=== PATIENT | male | born 1955 | race Caucasian/White ===

== ENCOUNTER 2024-11-24 23:18 | Emergency (ER) | payer OTHER ==
[~2024-11-24] VITALS: Ht 177.8 cm; Wt 75.0 kg
[2024-11-24 23:26] VITALS: TEMP 97.8
[2024-11-24 23:51] LABS: Nucleated Red Blood Cells % 0.0 %
[2024-11-24 23:53] LABS: Hematocrit 37.7 % (41.0-53.0); Hemoglobin 12.3 g/dL (13.5-17.5); Mean Corpuscular Hemoglobin 23.0 pg (28.0-32.0); Mean Corpuscular Volume 70.7 fL (80.0-100.0)
--- NOTE | 2024-11-25 00:01 | ED.PDOC ---
HPI Comments 69-year-old male who came ER via EMS for chest pains. Patient has history of hypertension, mi and kidney disease. Has been having chest pain since yesterday, intermittent, was seen by paramedics yesterday, and urgent Care today showing negative results. However, patient had an episode of chest pains, with diaphoresis and weakness prompted the call paramedics again. Upon arrival of the ER patient has no more chest pains. Patient has not taking any medications for chest pains so far. Chief Complaint: Chest Pain Time Seen by MD: 00:01 Reviewed Notes: Clearance Cutter Notes Allergies: Coded Allergies: Lisinopril (Verified Allergy, Unknown, 11/24/24) Information Source: Emergency Med Personnel Mode of Arrival: EMS Severity: Moderate Timing: Hours Duration: Intermittent Location: Substernal Radiation: No Radiation Quality: Sharp Onset: With Light Exertion Cardiac Risk Factors: HTN History of: Similar pain in past, MT Modifying Factors: Nothing Associated Signs and Symptoms: Diaphoresis Past Medical History PAST MEDICAL HISTORY: CKF, HTN, MT Surgical History: Denies all surgeries Family History Family History: Reviewed,noncontributory to illness Social History Smoker: Non-Smoker Alcohol: Denies ETOH Use Drugs: Denies Drug Use Lives In: Home Constitutional: reports: weakness; denies: chills, diaphoresis, fatigue, fever, malaise, sweats, others EENTM: denies: blurred vision, double vision, ear bleeding, ear discharge, ear drainage, ear pain, ear ringing, eye pain, eye redness, hearing loss, mouth pa in, mouth swelling, nasal discharge, nose bleeding, nose congestion, nose pain, photophobia, tearing, throat pain, throat swelling, voice changes, others Respiratory: denies: cough, hemoptysis, orthopnea, SOB at rest, shortness of breath, SOB with excertion, stridor, wheezing, others Cardiovascular: reports: chest pain; denies: dizzy spells, diaphoresis, Dyspnea on exertion, edema, irregular heart beat, left arm pain, lightheadedness, palpitations, PND, syncope, others Gastrointestinal: denies: abdomen distended, abdominal pain, blood streaked bow els, constipated, diarrhea, dysphagia, difficulty swallowing, hematemesis, melena, nausea, poor appetite, poor fluid intake, rectal bleeding, rectal pain, vomiting, others Genitourinary: denies: burning, dysuria, flank pain, frequency, hematuria, incontinence, penile discharge, penile sore, pain, testicle pain, testicle swelling, urgency, others Neurological: denies: dizziness, fainting, headache, left sided numbness, left sided weakness, numbness, paresthesia, pre-existing deficit, right sided numbness, right sided weakness, seizure, speech problems, tingling, tremors, weakness, others Musculoskeletal: denies: back pain, gout, joint pain, joint swelling, muscle pain, muscle stiffness, neck pain, others Integumetry: denies: bruises, change in color, change in hair/nails, dryness, laceration, lesions, lumps, rash, wounds, others Allergic/Immunocompromised: denies: Difficulty Healing, Frequent Infections, Hives, Itching, others Hematologic/Lymphatic: denies: anemia, blood clots, easy bleeding, easy bruising, swollen glands, others Endocrine: denies: excessive hunger, excessive sweating, excessive thirst, excessive urination, flushing, intolerance to cold, intolerance to heat, unexplained weight gain, unexplained weight loss, others Psychiatric: denies: anxiety, bipolar disorder, depression, hopeless, panic disorder, schizophrenia, sleepless, suicidal, others Physical Exam General Appearance: No Apparent Distress, Normal HEENT: Normal ENT Inspection, Pharynx Normal, TMs Normal Neck: Full Range of Motion, Non-Tender, Normal, Normal Inspection Respiratory: Chest Non-Tender, Lungs Clear, No Accessory Muscle Use, No Respira tory Distress, Normal Breath Sounds Cardiovascular: No Edema, No JVD, No Murmur, No Gallop, Normal Peripheral Pulses, Regular Rate/Rhythm Breast Exam: Deferred Gastrointestinal: No Organomegaly, Non Tender, No Pulsatile Mass, Normal Bowel Sounds, Soft Genitalia: Deferred Pelvic: Deferred Rectal: Deferred Extremities: No calf tenderness, Normal capillary refill, Normal inspection, Normal range of motion, Non-tender, No pedal edema Musculoskeletal : Apperance: Normal Neurologic: Alert, 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 Was a procedure done?: No CP Differential Dx Differential Diagnosis: A-fib, A-Flutter, Angina, Heart Failure, MT, Pulmonary Embolus, V-Fib, V-Tach, Other X-Ray, Labs, Meds, VS Vital Signs Date Time Temp Pulse Resp B/P (MAP) Pulse Ox O2 Delivery O2 Flow Rate FiO2 11/25/24 03:35 62 16 129/78 (95) 97 11/24/24 23:26 97.8 55 18 129/75 96 97.8 11/24/24 23:22 59 Lab Test 11/25/24 00:44 11/24/24 23:40 Range/Units Troponin I High Sensitivity 4 3 L </=54 ng/L White Blood Count 9.3 4.4-10.8 10^3/uL Red Blood Count 5.33 4.5-5.90 10^6/uL Hemoglobin 12.3 L 13.5-17.5 g/dL Hematocrit 37.7 L 41.0-53.0 % Mean Corpuscular Volume 70.7 L 80.0-100.0 fL Mean Corpuscular Hemoglobin 23.0 L 28.0-32.0 pg Mean Corpuscular Hemoglobin Concent 32.5 32.0-36.0 g/dL Red Cell Distribution Width 18.0 H 11.8-14.3 % Platelet Count 204 140-450 10^3/uL Mean Platelet Volume 8.9 6.9-10.8 fL Neutrophils (%) (Auto) 70.3 37.0-80.0 % Lymphocytes (%) (Auto) 18.3 10.0-50.0 % Monocytes (%) (Auto) 7.1 0.0-12.0 % Eosinophils (%) (Auto) 3.8 0.0-7.0 % Basophils (%) (Auto) 0.5 0.0-2.0 % Neutrophils # (Auto) 6.6 1.6-8.6 10 ^3/uL Lymphocytes # (Auto) 1.7 0.4-5.4 10 ^3/uL Monocytes # (Auto) 0.7 0-1.3 10 ^3/uL Eosinophils # (Auto) 0.3 0-0.8 10 ^3/uL Basophils # (Auto) 0 0-0.2 10 ^3/uL Nucleated Red Blood Cells 0.0 % Sodium Level 137 136-145 mmol/L Potassium Level 5.6 *H 3.5-5.1 mmol/L Chloride Level 105 98-107 mmol/L Carbon Dioxide Level 25 20-31 mmol/L Anion Gap 7 5-15 Blood Urea Nitrogen 24 H 9-23 mg/dL Creatinine 2.40 H 0.700-1.30 mg/dL Glomerular Filtration Rate Calc 28 >90 mL/min BUN/Creatinine Ratio 10.0 10.0-20.0 Serum Glucose 114 H 74-106 mg/dL Calcium Level 9.5 8.7-10.4 mg/dL Magnesium Level 2.2 1.6-2.6 mg/dL Total Bilirubin 0.5 0.2-1.0 mg/dL Aspartate Amino Transferase (AST) 22 13-40 U/L Alanine Aminotransferase (ALT) 22 7-40 U/L Alkaline Phosphatase 105 46-116 U/L Total Protein 7.4 5.7-8.2 g/dL Albumin 4.5 3.2-4.8 g/dL Current Medications Medications (Trade) Dose Ordered Sig/Ryan Route Start Time Stop Time Status Last Admin Zirconium Oxide (Lokelma) 10 gm ONCE ONCE PO 11/25/24 03:30 11/25/24 03:31 DC 11/25/24 03:40 CHEST RADIOGRAPH Indication: chest pain Technique: 1 view Comparison: None FINDINGS: Lines and Tubes: None Lungs/Pleura: No focal consolidation, pleural effusion or pneumothorax. Cardiomediastinum: Unremarkable. Other: No acute osseous abnormality. IMPRESSION: 1. No acute cardiopulmonary abnormality. Time of 1ST Reevaluation: 23:56 Reevaluation 1ST: Unchanged Patient Education/Counseling: Diagnosis, Treatment Family Education/Counseling: Diagnosis, Treatment SEPSIS Sepsis Screen Date sepsis recognized/suspect: Nov 24, 2024 Time Sepsis recognized/suspect: 2312 Recent Procedure: No On Antibiotic Therapy: No Respiratory Rate >20: No Heart Rate >90: No Temp<36 C (96.8 F) or >38.3 C: No SBP <90 or MAP <65 mmHG: No New Acute Mental Status Change: No Is the patient on CPAP, BIPAP,: No Physician Orders Electrocardigram (11/24/24 23:21) Chest Xray 1 View (11/24/24 23:35) Vital Signs Date Time Temp Pulse Resp B/P (MAP) Pulse Ox O2 Delivery O2 Flow Rate FiO2 11/25/24 03:35 62 16 129/78 (95) 97 11/24/24 23:26 97.8 55 18 129/75 96 97.8 11/24/24 23:22 59 Laboratory Tests Test 11/24/24 23:40 White Blood Count 9.3 10^3/uL (4.4-10.8) Medications Medications Dose Ordered Sig/Ryan Route Start Time Stop Time Status Last Admin Dose Admin Zirconium Oxide 10 gm ONCE ONCE PO 11/25/24 03:30 11/25/24 03:31 DC 11/25/24 03:40 Departure 1 Departure Time of Disposition: :30 Impression: Primary Impression: Hyperkalemia Additional Impression: Renal insufficiency Disposition: HOME / SELF CARE / HOMELESS Condition: Stable Discharged With: Self Comments I discussed the case with [facility] and requested to transfer the patient. [facility] reviewed the case and plans to discharge the patient home with close follow up Critical Care Note Critical Care Time?: No Stability Stability form required: No Heart Score Heart Score: Heart Score Response (Comments) Value History Slightly Suspicious 0 EKG Normal 0 Age >65 2 Risk Factors >3 or Hx ASHD 2 Troponin Normal limit 0 Total 4 I personally scribed for ARTI MICHEL MD ([email or web address]) on 11/25/24 at 00:01. Electronically submitted by Parker Cabrera ([email or web address]). I personally scribed for ARTI MICHEL MD ([email or web address]) on 11/25/24 at 01:54. Electronically submitted by Parker Cabrera ([facility]). ARTI MICHEL MD Nov 25, 2024 00:01
[2024-11-25 00:06] LABS: Alanine Aminotransferase 22 U/L (7-40); Albumin 4.5 g/dL (3.2-4.8); Alkaline Phosphatase 105 U/L (46-116); Anion Gap 7 (5-15); BUN/Creatinine Ratio 10.0 (10.0-20.0); Bilirubin, Total 0.5 mg/dL (0.2-1.0); Blood Urea Nitrogen 24 mg/dL (9-23); Calcium 9.5 mg/dL (8.7-10.4); Carbon Dioxide 25 mmol/L (20-31); Chloride 105 mmol/L (98-107); Glucose 114 mg/dL (74-106); Magnesium 2.2 mg/dL (1.6-2.6); Sodium 137 mmol/L (136-145); Total Protein 7.4 g/dL (5.7-8.2)
[2024-11-25 00:07] LABS: Potassium 5.6 mmol/L (3.5-5.1)
--- NOTE | 2024-11-25 01:08 | DVH ---
CHEST RADIOGRAPH Indication: chest pain Technique: 1 view Comparison: None FINDINGS: Lines and Tubes: None Lungs/Pleura: No focal consolidation, pleural effusion or pneumothorax. Cardiomediastinum: Unremarkable. Other: No acute osseous abnormality. IMPRESSION: 1. No acute cardiopulmonary abnormality.
[2024-11-25 03:35] VITALS: BP 129/78; PULSE 62; RESP 16; O2SAT 97
[2024-11-25] MEDS: SODIUM ZIRCONIUM CYCL 10 GM PAK PO ONE (03:40)
--- NOTE | 2024-12-02 14:20 | ECG ---
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
== END 2024-11-25 03:45 | disposition home or self-care (01) ==
LOC: EDBD 23:18 → EDSEX 23:18 → ER 23:18
DX: N28.9 Disorder of kidney and ureter, unspecified (principal); E87.5 Hyperkalemia; R07.89 Other chest pain; I25.2 Old myocardial infarction; Z88.8 Allergy status to other drugs, medicaments and biological substances
CPT/HCPCS: 36415; 71045; 80053; 83735; 84484; 85025; 93005